=== PATIENT | female | born 1955 | race Caucasian/White ===

== ENCOUNTER → 2017-11-07 | Outpatient (CLI) | payer OTHER | END | disposition home or self-care (01) | LOC: CFH 14:14 | PROVIDERS: ATTEND Otolaryngology | DX: Z12.31 Encounter for screening mammogram for malignant neoplasm of breast (principal); R92.1 Mammographic calcification found on diagnostic imaging of breast; R14.0 Abdominal distension (gaseous) | CPT/HCPCS: 74018; 77067 ==

== ENCOUNTER 2017-12-28 10:41 | Inpatient (IN) | payer OTHER ==
[~2017-12-28] VITALS: Ht 167.6 cm; Wt 65.6 kg
[2017-12-28] MEDS ORDERED: METF500T17 PO (11:02)
[2017-12-28] MEDS ORDERED: BENA20TA4 PO (11:02)
[2017-12-28] MEDS ORDERED: ATOR40TA78 PO (11:02)
[2017-12-28] MEDS ORDERED: DEXAMETHASONE 4 MG/ML, 1ML ONE (11:20)
[2017-12-28] MEDS ORDERED: SODIUM CHLORIDE 0.9% 1,000ML IVBOLUS ONE (11:30)
[2017-12-28] MEDS ORDERED: DEXAMETHASONE 4 MG/ML, 1ML IVPush ONE (11:30)
[2017-12-28] MEDS ORDERED: SODIUM CHLORIDE FLUSH 10ML SYR IVF ONE (11:30)
[2017-12-28 11:44] LABS: BASOPHILS # (AUTO) 0.01 x10^3/uL (0-0.1); BASOPHILS % (AUTO) 0 % (0-1); EOSINOPHILS # (AUTO) 0.05 x10^3/uL (0-0.4); EOSINOPHILS % (AUTO) 0 % (1-7); LYMPHOCYTES # (AUTO) 0.39 x10^3/uL (1-3.4); LYMPHOCYTES % (AUTO) 3 % (22-44); MD NO; MEAN CORPUSCULAR HEMOGLOBIN 27.7 pg (27.0-34.8); MEAN CORPUSCULAR HGB CONC 32.8 g/dL (32.4-35.8); MEAN CORPUSCULAR VOLUME 84.6 fL (80-100); MEAN PLATELET VOLUME 8.5 fL (7.4-10.4); MONOCYTES # (AUTO) 0.79 x10^3/uL (0.2-0.8); MONOCYTES % (AUTO) 6 % (2-9); NEUTROPHILS # (AUTO) 11.38 x10^3/uL (1.8-6.8); NEUTROPHILS % (AUTO) 90 % (42-75); PLATELET COUNT 258 x10^3/uL (130-400); RED BLOOD COUNT 4.54 x10^6/uL (3.82-5.3); RED CELL DISTRIBUTION WIDTH 14.9 % (9.6-15.2)
[2017-12-28 11:49] LABS: ALBUMIN 3.3 g/dL (3.4-5.0); ANION GAP 9 mmol/L (5-15); CALCIUM 10.4 mg/dL (8.5-10.1); CHLORIDE 111 mmol/L (98-107)
[2017-12-28] MEDS ORDERED: AMPICILLIN/SULBACTAM 3 GM in SODIUM CHLORIDE 0.9% 100 ML IV ONE (12:00)
[2017-12-28] MEDS ORDERED: OMNIPAQUE 350 MG/ML, 100ML BOTTLE ONE (12:16)
[2017-12-28] MEDS ORDERED: LIDOCAINE 2% VISCOUS 15 ML UDC MM ONE (15:00)
[2017-12-28] MEDS ORDERED: LIDOCAINE JELLY 2%, 30GM TP ONE (15:00)
[2017-12-28] MEDS ORDERED: SODIUM CHLORIDE FLUSH 10ML SYR IVF PRN (15:00)
[2017-12-28] MEDS ORDERED: LIDOCAINE 1%-EPI 1:100K, 30ML ONE (15:10)
[2017-12-28] MEDS ORDERED: OXYMETAZOLINE NASAL SPRAY 0.05%, 15ML ONE (15:22)
[2017-12-28] MEDS ORDERED: FENTANYL PF 250 MCG/5ML ONE (15:25)
[2017-12-28] MEDS ORDERED: MIDAZOLAM 1 MG/ML, 2ML ONE (15:25)
[2017-12-28] MEDS ORDERED: PROPOFOL 10 MG/ML, 20ML ONE (15:27)
[2017-12-28] MEDS ORDERED: ROCURONIUM 10MG/ML,5ML ONE (15:27)
[2017-12-28] MEDS ORDERED: SUCCINYLCHOLINE 20 MG/ML, 10ML ONE (15:27)
[2017-12-28] MEDS ORDERED: ONDANSETRON 2MG/ML, 2ML ONE (16:11)
[2017-12-28] MEDS ORDERED: LIDOCAINE 1%-EPI 1:100K, 30ML IM ONE (16:16)
[2017-12-28] MEDS ORDERED: ONDANSETRON 2MG/ML, 2ML IV PRN (17:00)
[2017-12-28] MEDS ORDERED: EPHEDRINE 50 MG/ML, 1ML IVPush PRN (17:00)
[2017-12-28] MEDS ORDERED: ONDANSETRON ODT 8 MG PO PRN (17:00)
[2017-12-28] MEDS ORDERED: HYDROmorphone 1 MG/ML, 1ML IV PRN (17:00)
[2017-12-28] MEDS ORDERED: OXYcodone 5 MG/5 ML ORAL.SOL UDC PO PRN (17:00)
[2017-12-28] MEDS ORDERED: LORazepam 2 MG/ML, 1ML IVPush PRN (17:00)
[2017-12-28] MEDS ORDERED: FENTANYL PF 100 MCG/2ML IV PRN (17:00)
[2017-12-28] MEDS ORDERED: LABETALOL 5MG/ML, 20ML IV PRN (17:00)
[2017-12-28] MEDS ORDERED: MORPHINE SULFATE 4 MG/ML, 1ML IVPush PRN (17:00)
[2017-12-28] MEDS ORDERED: ALBUTEROL SULFATE 2.5 MG/3 ML NPPB PRN (17:00)
[2017-12-28] MEDS ORDERED: ACETAMINOPHEN 325 MG TABLET PO PRN (17:00)
[2017-12-28] MEDS ORDERED: MEPERIDINE/PF 25MG/0.5ML IVPush PRN (17:00)
[2017-12-28] MEDS ORDERED: hydrALAzine 20 MG/ML, 1ML IV PRN (17:00)
[2017-12-28] MEDS ORDERED: MIDAZOLAM 1 MG/ML, 2ML IV PRN (17:00)
[2017-12-28] MEDS ORDERED: PROMETHAZINE 25 MG/ML, 1ML IV PRN (17:00)
[2017-12-28] MEDS ORDERED: PROMETHAZINE 12.5 MG SUPP PR PRN (17:00)
[2017-12-28 17:30] VITALS: BP 122/73
[2017-12-28] MEDS ORDERED: HYDROcodone/APAP 7.5-325MG/15ML UDC PO PRN (18:00)
[2017-12-28] MEDS: LACTATED RINGERS 1,000 ML IV SCH (18:45)
[2017-12-28 20:20] VITALS: BP 131/79
[2017-12-28] MEDS: AMPICILLIN/SULBACTAM 3 GM in SODIUM CHLORIDE 0.9% 100 ML IV SCH (20:31)
[2017-12-28 23:47] VITALS: BP 122/76
[2017-12-29] MEDS: AMPICILLIN/SULBACTAM 3 GM in SODIUM CHLORIDE 0.9% 100 ML IV SCH ×4 (02:12→19:47)
[2017-12-29] MEDS: LACTATED RINGERS 1,000 ML IV SCH ×2 (02:13→14:25)
[2017-12-29 04:21] VITALS: BP 111/63
[2017-12-29 05:39] LABS: BASOPHILS % (AUTO) 0 % (0-1); EOSINOPHILS % (AUTO) 0 % (1-7); LYMPHOCYTES # (AUTO) 0.37 x10^3/uL (1-3.4); LYMPHOCYTES % (AUTO) 3 % (22-44); MD NO; MEAN CORPUSCULAR HEMOGLOBIN 28.7 pg (27.0-34.8); MEAN CORPUSCULAR HGB CONC 33.3 g/dL (32.4-35.8); MEAN CORPUSCULAR VOLUME 86.2 fL (80-100); MONOCYTES # (AUTO) 0.69 x10^3/uL (0.2-0.8); MONOCYTES % (AUTO) 5 % (2-9); NEUTROPHILS # (AUTO) 11.98 x10^3/uL (1.8-6.8); NEUTROPHILS % (AUTO) 92 % (42-75); PLATELET COUNT 285 x10^3/uL (130-400); RED BLOOD COUNT 3.74 x10^6/uL (3.82-5.3); RED CELL DISTRIBUTION WIDTH 15.2 % (9.6-15.2)
[2017-12-29 05:50] LABS: ANION GAP 9 mmol/L (5-15); CALCIUM 9.6 mg/dL (8.5-10.1); CHLORIDE 114 mmol/L (98-107); CREATININE 1.09 mg/dL (0.55-1.02)
[2017-12-29 07:22] VITALS: BP 112/69
[2017-12-29 12:37] VITALS: BP 126/73
[2017-12-29 19:33] VITALS: BP 108/62
[2017-12-29] MEDS ORDERED: ATORVASTATIN 40 MG TABLET PO SCH (21:00)
[2017-12-30] MEDS: LACTATED RINGERS 1,000 ML IV SCH
[2017-12-30] MEDS: AMPICILLIN/SULBACTAM 3 GM in SODIUM CHLORIDE 0.9% 100 ML IV SCH ×2 (01:58→07:38)
[2017-12-30 02:17] VITALS: BP 125/72
[2017-12-30 05:42] LABS: CALCIUM 9.4 mg/dL (8.5-10.1); CHLORIDE 117 mmol/L (98-107)
[2017-12-30 05:46] LABS: ANION GAP 7 mmol/L (5-15); CREATININE 1.08 mg/dL (0.55-1.02)
[2017-12-30 05:49] LABS: BASOPHILS # (AUTO) 0.01 x10^3/uL (0-0.1); BASOPHILS % (AUTO) 0 % (0-1); EOSINOPHILS # (AUTO) 0.05 x10^3/uL (0-0.4); EOSINOPHILS % (AUTO) 1 % (1-7); LYMPHOCYTES # (AUTO) 0.82 x10^3/uL (1-3.4); LYMPHOCYTES % (AUTO) 12 % (22-44); MD NO; MEAN CORPUSCULAR HEMOGLOBIN 28.3 pg (27.0-34.8); MEAN CORPUSCULAR HGB CONC 33.1 g/dL (32.4-35.8); MEAN CORPUSCULAR VOLUME 85.5 fL (80-100); MEAN PLATELET VOLUME 7.7 fL (7.4-10.4); MONOCYTES # (AUTO) 0.44 x10^3/uL (0.2-0.8); MONOCYTES % (AUTO) 6 % (2-9); NEUTROPHILS # (AUTO) 5.62 x10^3/uL (1.8-6.8); NEUTROPHILS % (AUTO) 81 % (42-75); PLATELET COUNT 271 x10^3/uL (130-400); RED BLOOD COUNT 3.57 x10^6/uL (3.82-5.3); RED CELL DISTRIBUTION WIDTH 15.1 % (9.6-15.2)
[2017-12-30 07:30] VITALS: BP 115/66
[2017-12-30] MEDS ORDERED: AMOX1TAB64 PO (12:12)
[2017-12-30 12:40] VITALS: BP 132/73
== END 2017-12-30 13:56 | disposition home or self-care (01) | DRG 133 ==
LOC: ED 11:23 → EDIP 14:47 → 4NOR 17:22 → DCLOUNGE 12-30 13:38
PROVIDERS: ADMIT Family Medicine; ATTEND Family Medicine
PROC: 0C9M0ZZ Drainage of Pharynx, Open Approach (ICD-10-PCS; principal; 2017-12-28 15:15)
DX: J39.0 Retropharyngeal and parapharyngeal abscess (principal); L02.11 Cutaneous abscess of neck; E11.9 Type 2 diabetes mellitus without complications; K04.7 Periapical abscess without sinus; E78.5 Hyperlipidemia, unspecified; I10 Essential (primary) hypertension; Q89.2 Congenital malformations of other endocrine glands
CPT/HCPCS: 36415; 70491; 80048; 82040; 85025; 87040; 87070; 87075; 87205; 96361; 96365; 96375; G0378; J0295; J1100; J2250; J2405; J2704; J3010; J3490; Q9967; J0330; J7030; J7120

== ENCOUNTER → 2020-01-13 | Outpatient (CLI) | payer OTHER ==
[~2020-01-13] MED LIST: AMOX1TAB64 PO; ATOR40TA78 PO; BENA20TA54 PO; METF500T17 PO
== END | disposition home or self-care (01) ==
LOC: CFH 14:27
PROVIDERS: ATTEND Family Medicine
DX: Z12.31 Encounter for screening mammogram for malignant neoplasm of breast (principal)
CPT/HCPCS: 77063; 77067